=== PATIENT | male | born 2000 | race Caucasian/White ===

== ENCOUNTER → 2018-12-29 | Outpatient (CLI) | payer BC ==
[~2018-12-29] MED LIST: CEPH250S38 PO; [UNRECOGNIZED DRUG - OTHER]
--- NOTE | 2018-12-29 16:43 | Diagnostic Imaging Report ---
INDICATION: Left wrist injury FINDINGS: Three views of the left wrist show a transverse fracture through the waist of the scaphoid. Intercarpal joint spaces are well-maintained. IMPRESSION: Nondisplaced fracture through the waist of the scaphoid. Dictated by: Dictated on workstation # [id number]
== END ==
LOC: RAD 15:50
PROVIDERS: ATTEND Family Medicine
DX: S62.025A Nondisplaced fracture of middle third of navicular [scaphoid] bone of left wrist, initial encounter for closed fracture (principal)
CPT/HCPCS: 73110

== ENCOUNTER → 2019-03-10 | Outpatient (CLI) | payer BC ==
--- NOTE | 2019-03-10 17:17 | Diagnostic Imaging Report ---
PROCEDURE: MRI left upper extremity without contrast. TECHNIQUE: Multiplanar, multisequence non contrast-enhanced MRI of the left upper extremity was accomplished. INDICATION: Wrist fracture several months ago. Patient has continued pain. FINDINGS: The marrow signal intensity of the distal radius and ulna appears normal. Imaging of the carpus does show edema within the scaphoid. Edema is identified in the mid and distal aspect. No residual fracture line is seen. No significant volume loss or fragmentation of the navicular is seen. Carpal alignment appears to be normal. The intrinsic ligaments of the carpal bones appear to be intact. Triangular fibrocartilage appears to be intact. Flexor and extensor tendons are unremarkable. Visualized metacarpals are unremarkable. IMPRESSION: There is edema within the navicular which appears to be primarily in the mid and distal aspect. This may represent residual edema from recent fracture and healing. No definite volume loss or fragmentation of the proximal pole is identified to suggest osteonecrosis. No other significant abnormality is detected. Dictated by: Dictated on workstation # [id number]
== END ==
LOC: RAD 15:21
PROVIDERS: ATTEND Orthopaedic Surgery
DX: S62.002D Unspecified fracture of navicular [scaphoid] bone of left wrist, subsequent encounter for fracture with routine healing (principal)
CPT/HCPCS: 73221

== ENCOUNTER → 2019-06-29 | Outpatient (CLI) | payer OTHER ==
--- NOTE | 2019-06-29 11:10 | Diagnostic Imaging Report ---
PROCEDURE: CT left upper extremity without contrast. TECHNIQUE: Multiple contiguous axial images were obtained through the left upper extremity without the use of intravenous contrast. Auto Exposure Controls were utilized during the CT exam to meet ALARA standards for radiation dose reduction. INDICATION: Left wrist pain. COMPARISON: MRI of the left wrist from 03/10/2019. Wrist radiograph of 12/29/2018. FINDINGS: Bones: The nondisplaced and simple scaphoid waist fracture has undergone partial healing since prior wrist radiograph. However, there is incomplete osseous bridging along the volar aspect of the fracture. Dorsal waist of the fracture has completely healed via interosseous bridging. No additional fracture. No osteonecrosis of the lunate. No ulnar positive variant. Joint spaces are well preserved without degenerative change present. Soft tissues: Flexor and extensor tendons are normal in position. No appreciable soft tissue ganglion. Intrinsic musculature of the hand is normal in bulk. IMPRESSION: 1. Solid osseous bridging of the dorsal aspect of the scaphoid waist fracture. The palmar aspect has incomplete bridging at this time. 2. No additional osseous abnormality in the left wrist. Dictated by: Dictated on workstation # [id number]
== END ==
LOC: RAD 08:43
PROVIDERS: ATTEND Nurse Practitioner
DX: Z04.2 Encounter for examination and observation following work accident (principal); S63.592D Other specified sprain of left wrist, subsequent encounter; W11.XXXD Fall on and from ladder, subsequent encounter; F90.9 Attention-deficit hyperactivity disorder, unspecified type
CPT/HCPCS: 73200

== ENCOUNTER → 2020-04-28 | Outpatient (CLI) | payer BC ==
--- NOTE | 2020-04-28 10:17 | Diagnostic Imaging Report ---
INDICATION: Abdominal pain. COMPARISON: None FINDINGS: 2 supine radiographic views of the abdomen were obtained and demonstrate nondistended loops of small bowel. There is no large collection of free peritoneal air. Mild air and stool are seen scattered throughout the colon. No unexpected extraosseous calcifications or radiopaque foreign bodies are seen. Bony structures show no gross acute abnormalities. IMPRESSION: 1. Nonobstructed small bowel gas pattern. Dictated by: Dictated on workstation # [id number]
== END ==
LOC: RAD 09:03
PROVIDERS: ATTEND Family Medicine
DX: R10.9 Unspecified abdominal pain (principal)
CPT/HCPCS: 74018

== ENCOUNTER 2020-06-03 19:48 | Emergency (ER) | payer BC ==
[~2020-06-03] VITALS: Ht 182 cm; Wt 95.8 kg
--- NOTE | 2020-06-03 20:14 | ED Abdominal Pain ---
General Chief Complaint: Abdominal/GI Problems Stated Complaint: STOMACH SWELLING/PAIN/NAUSEA/DIARRHEA Nursing Triage Note: PT PRESENTS WITH CONCERNS ON NAUSEA AND VOMITING WITH ABD BLOATING AND PAIN THAT HAS BEEN GOING ON FOR APPROX 4 MONTHS Sepsis Screen: No Definite Risk Source of Information: Patient Exam Limitations: No Limitations History of Present Illness Date Seen by Provider: Jun 03, 2020 Time Seen by Provider: 20:13 Initial Comments To ER with periumbilical abdominal cramping loose stools bloating and weight gain for 4 months. Mother has IBS. Timing/Duration: 1-2 Days Severity/Quality: Moderate Location: Generalized Abdomen Radiation: No Radiation Activities at Onset: None Associated Symptoms: Nausea/Vomiting Allergies and Home Medications Allergies Coded Allergies: No Known Drug Allergies (Unverified , 07/02/11) Patient Home Medication List Home Medication List Reviewed: Yes Review of Systems Review of Systems Constitutional: see HPI EENTM: No Symptoms Reported Respiratory: No Symptoms Reported Cardiovascular: No Symptoms Reported Gastrointestinal: See HPI, Abdominal Pain, Diarrhea, Nausea Genitourinary: No Symptoms Reported Musculoskeletal: no symptoms reported Skin: no symptoms reported Psychiatric/Neurological: No Symptoms Reported Endocrine: No Symptoms Reported Hematologic/Lymphatic: No Symptoms Reported Past Jshhdgx-Lxqgyl-Mmplzo Hx Patient Social History Alcohol Use: Occasionally Uses Recreational Drug Use: No Smoking Status: Never a Smoker 2nd Hand Smoke Exposure: No Recent Foreign Travel: No Contact w/Someone Who Travel: No Recent Infectious Disease Expo: No Recent Hopitalizations: No Physical Abuse: No Sexual Abuse: No Mistreated: No Fear: No Immunizations Up To Date Tetanus Booster (TDap): Less than 5yrs Seasonal Allergies Seasonal Allergies: Yes Past Medical History Surgeries: Yes (GYNECOMASTIA) Respiratory: No Cardiac: No Neurological: No Genitourinary: No Gastrointestinal: No Musculoskeletal: No Endocrine: No HEENT: No Cancer: No Psychosocial: No Blood Disorders: No Physical Exam Vital Signs Vital Signs - First Documented 06/03/20 19:57 Temp 36.7 Pulse 75 Resp 18 B/P (MAP) 133/80 (97) Pulse Ox 98 Capillary Refill : Less Than 3 Seconds Height/Weight/BMI Height: '" Weight: lbs. oz. kg; 28.00 BMI Method: General Appearance: WD/WN, no apparent distress Neck: non-tender, full range of motion Respiratory: no respiratory distress, no accessory muscle use Gastrointestinal: normal bowel sounds, soft, tenderness Extremities: normal range of motion, non-tender Neurologic/Psychiatric: alert, normal mood/affect, oriented x 3 Skin: normal color, warm/dry Progress/Results/Core Measures Results/Orders My Orders Orders - HODAN FISCHER APRN Cbc With Automated Diff (06/03/20 20:10) Hs C Reactive Protein (06/03/20 20:10) Comprehensive Metabolic Panel (06/03/20 20:10) Lipase (06/03/20 20:10) Ua Culture If Indicated (06/03/20 20:10) Drug Screen Stat (Urine) (06/03/20 20:10) Ct Abdomen/Pelvis W (06/03/20 20:13) Vital Signs/I&O 06/03/20 19:57 Temp 36.7 Pulse 75 Resp 18 B/P (MAP) 133/80 (97) Pulse Ox 98 Blood Pressure Mean: 97 Departure Impression Primary Impression: IBS (irritable bowel syndrome) Qualified Codes: K58.0 - Irritable bowel syndrome with diarrhea Disposition: HOME, SELF-CARE Condition: Stable Departure-Patient Inst. Decision time for Depature: 20:15 Referrals: VINICIUS GARNICA MD (PCP/Family) Primary Care Physician Patient Instructions: IBS Diet, Irritable Bowel Syndrome Add. Discharge Instructions: 1. Follow-up with Dr. Garnica. Call Saturday to make an appointment to be seen. Return to ER for any worsening. All discharge instructions reviewed with patient and/or family. Voiced understanding. Scripts Dicyclomine HCl (Dicyclomine HCl) 20 Mg Tablet 20 MG PO TID, #30 TAB Prov: HODAN FISCHER APRN 06/03/20 Ondansetron (Ondansetron Odt) 8 Mg Tab.rapdis 8 MG PO Q6H PRN for NAUSEA/VOMITING, #10 TAB Prov: HODAN FISCHER APRN 06/03/20 Copy Copies To 1: VINICIUS GARNICA MD, PETER J APRN Jun 03, 2020 20:14
[2020-06-03] MEDS ORDERED: DICY20TA10 PO (20:17)
[2020-06-03] MEDS ORDERED: ONDA8TAB13 PO (20:17)
[2020-06-03 20:25] LABS: BASOPHILS % (AUTO) 0 % (0-10); EOSINOPHILS # (AUTO) 0.1 10^3/uL (0.0-0.3); EOSINOPHILS % (AUTO) 2 % (0-10); HEMATOCRIT 45 % (40-54); HEMOGLOBIN 15.7 G/DL (13.3-17.7); LYMPHOCYTES # (AUTO) 1.2 X 10^3 (1.0-4.0); LYMPHOCYTES % (AUTO) 22 % (12-44); MEAN CORPUSCULAR HEMOGLOBIN 28 PG (25-34); MEAN CORPUSCULAR HGB CONC 35 G/DL (32-36); MEAN CORPUSCULAR VOLUME 80 FL (80-99); MEAN PLATELET VOLUME 9.4 FL (7.4-10.4); MONOCYTES # (AUTO) 0.3 X 10^3 (0.0-1.0); MONOCYTES % (AUTO) 6 % (0-12); NEUTROPHILS # (AUTO) 3.9 X 10^3 (1.8-7.8); NEUTROPHILS % (AUTO) 71 % (42-75); PLATELET COUNT 259 10^3/uL (130-400); WHITE BLOOD COUNT 5.4 10^3/uL (4.3-11.0)
[2020-06-03 20:33] LABS: BILIRUBIN,URINE NEGATIVE (NEGATIVE); CLARITY,URINE CLEAR; COLOR,URINE YELLOW; GLUCOSE, URINE (UA) NEGATIVE (NEGATIVE); KETONES,URINE NEGATIVE (NEGATIVE); LEUKOCYTE ESTERASE ,URINE NEGATIVE (NEGATIVE); NITRITE,URINE NEGATIVE (NEGATIVE); PROTEIN,URINE NEGATIVE (NEGATIVE)
[2020-06-03 20:35] LABS: ALBUMIN 4.7 GM/DL (3.2-4.5); CHLORIDE 105 MMOL/L (98-107); POTASSIUM 4.1 MMOL/L (3.6-5.0); SODIUM 142 MMOL/L (135-145)
[2020-06-03 20:37] LABS: CALCIUM 9.7 MG/DL (8.5-10.1)
[2020-06-03 20:38] LABS: GLUCOSE 87 MG/DL (70-105); TOTAL PROTEIN 7.5 GM/DL (6.4-8.2)
[2020-06-03 20:39] LABS: BACTERIA,URINE NEGATIVE /HPF
[2020-06-03 20:39] LABS: CARBON DIOXIDE 24 MMOL/L (21-32)
[2020-06-03 20:40] LABS: BILIRUBIN,TOTAL 0.6 MG/DL (0.1-1.0)
[2020-06-03 20:41] LABS: ALKALINE PHOSPHATASE 92 U/L (40-136)
[2020-06-03 20:42] LABS: CREATININE SERUM 0.83 MG/DL (0.60-1.30); GFR ESTIMATED > 60
[2020-06-03 20:43] LABS: BUN/CREATININE RATIO 11
[2020-06-03 20:44] LABS: ALANINE AMINOTRANSFERASE 45 U/L (0-55)
[2020-06-03 20:45] LABS: LIPASE 23 U/L (8-78)
[2020-06-03 20:47] LABS: AMPHETAMINE SCREEN, URINE NEGATIVE (NEGATIVE); BARBITURATE SCREEN URINE NEGATIVE (NEGATIVE); BENZODIAZEPINES SCREEN URINE NEGATIVE (NEGATIVE); CANNABINOID SCREEN, URINE NEGATIVE (NEGATIVE); COCAINE SCREEN URINE NEGATIVE (NEGATIVE); METHADONE STAT NEGATIVE (NEGATIVE); METHAMPHETAMINE SCREEN URINE S NEGATIVE (NEGATIVE); OPIATE SCREEN URINE NEGATIVE (NEGATIVE); OXYCODONE STAT NEGATIVE (NEGATIVE); PROPOXYPHENE STAT NEGATIVE (NEGATIVE); TRICYCLIC ANTIDEPRESSANTS SCRE NEGATIVE (NEGATIVE)
[2020-06-03 21:11] VITALS: BP 122/68
--- OUTSIDE RECORDS SUMMARY | 2020-06-03 22:17 | XMS REPORT | Continuity of Care Document ---
Author Organization Unknown Address Unknown Phone Unavailable Allergies Active Description Code Type Severity Reaction Onset Reported/Identified Relationship to Patient Clinical Status Yes No Known Drug Allergies [id number] Drug Allergy Unknown N/A 07/02/2011 Medications There is no data. Problems Date Dx Coded Attending Type Code Diagnosis Diagnosed By 08/14/2009 Ot V58.30 07/02/2011 Ot 873.0 OPEN WOUND OF SCALP 07/02/2011 Ot E000.8 OT ER EXTERNAL CAUSE STATUS 07/02/2011 Ot E029.9 OT ER ACTIVITY 07/02/2011 Ot E849.0 ACC IDENT IN HOME 07/02/2011 Ot E920.8 ACC -CUTTING INSTRUM NEC 07/09/2011 Ot V58.32 ENC OUNTER FOR REMOVAL OF SUTURES 02/25/2013 V03.89 MEN INGOCOCCAL DX 02/25/2013 V04.89 GAR DASIL (HPV) DX 02/25/2013 V03.89 MEN INGOCOCCAL DX 02/25/2013 V04.89 GAR DASIL (HPV) DX 02/25/2013 JULIUS OLMEDO DO V03.89 MENINGOCOCCAL DX 02/25/2013 JULIUS OLMEDO DO V04.89 GARDASIL (HPV) DX 02/25/2013 DENNIS BOTELLO, ISIDORO Garcia V03.89 MENINGOCOCCAL DX 02/25/2013 DENNIS BOTELLO, ISIDORO Garcia V04.89 GARDASIL (HPV) DX 02/25/2013 GIOVANNI CONTE APRN V03.89 MENINGOCOCCAL DX 02/25/2013 GIOVANNI CONTE APRN V04.89 GARDASIL (HPV) DX 02/25/2013 DENNIS BOTELLO, ISIDORO Garcia V03.89 MENINGOCOCCAL DX 02/25/2013 DENNIS BOTELLO, ISIDORO Garcia V04.89 GARDASIL (HPV) DX 02/25/2013 DENNIS BOTELLO, ISIDORO Garcia V03.89 MENINGOCOCCAL DX 02/25/2013 DENNIS BOTELLO, ISIDORO A V04.89 GARDASIL (HPV) DX 02/25/2013 DENNIS PHD, ISIDORO A V03.89 MENINGOCOCCAL DX 02/25/2013 DENNIS PHD, ISIDORO A V04.89 GARDASIL (HPV) DX 08/10/2013 JULIUS OLMEDO DO 296.90 MOOD DISORDER 08/10/2013 DENNIS PHD, ISIDORO A 296.90 MOOD DISORDER 08/10/2013 GIOVANNI CONTE APRN 296.90 MOOD DISORDER 08/10/2013 DENNIS PHD, ISIDORO A 296.90 MOOD DISORDER 08/10/2013 DENNIS PHD, ISIDORO A 296.90 MOOD DISORDER 08/10/2013 DENNIS PHD, ISIDORO A 296.90 MOOD DISORDER 12/29/2018 DANIKA SHABAZZ, VINICIUS Bailey Ot S62.025A NONDISP FX OF MIDDLE THIRD OF NAVIC BONE 02/04/2019 DANIKA SHABAZZ, VINICIUS Bailey Ot S62.025A NONDISP FX OF MIDDLE THIRD OF NAVIC BONE 03/10/2019 DANIKA SHABAZZ, VINICIUS Bailey Ot S62.025A NONDISP FX OF MIDDLE THIRD OF NAVIC BONE 03/17/2019 VINICIUS GARNICA MD Ot S62.025A NONDISP FX OF MIDDLE THIRD OF NAVIC BONE 03/17/2019 BHASKAR DAJUAN HARRELL Ot S62.002D UNSP FX NAVICULAR BONE OF L WRIST, SUBS 04/07/2019 BHASKAR DODAJUAN Ot S62.002D UNSP FX NAVICULAR BONE OF L WRIST, SUBS 06/24/2019 DANIKA SHABAZZ, VINICIUS Bailey Ot S62.025A NONDISP FX OF MIDDLE THIRD OF NAVIC BONE 06/24/2019 BHASKAR DODAJUAN Ot S62.002D UNSP FX NAVICULAR BONE OF L WRIST, SUBS 07/02/2019 LYSSA FAIRBANKS APRN Ot F90.9 ATTENTION-DEFICIT HYPERACTIVITY DISORDER 07/02/2019 LYSSA FAIRBANKS APRN Ot S63.592D OTHER SPECIFIED SPRAIN OF LEFT WRIST, [place] 07/02/2019 LYSSA FAIRBANKS 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 9 UNSPECIFIED ABDOMINAL PAIN Procedures Code Description [place] [address] PSYC H DIAGNOSTIC EVALUATION 09/16/2013 92963 PSYC H FAMILY TX W/PAT 10/01/2013 96517 PSYC H FAMILY TX W/PAT 10/06/2013 66514 PSYC H FAMILY TX W/PAT 10/22/2013 Results Test Result Range GC/CHLAMYDIA (SWAB OR URINE)-RAPID - 11:01 CHLAMYDIA TRACHOMATIS RNA, TMA NOT DETECTED NOT DETECTED NEISSERIA GONORRHOEAE RNA, TMA NOT DETECTED NOT DETECTED COMMENT NRG CULTURE, VIRAL (HSV W/TYPING) - 08/03/19 12:01 SOURCE: GENITALS NRG HSV CULTURE: NOT ISOLATED NRG HSV 1/2 IGG,TYPE SPECIFIC AB HERPESELECT - 08/04/19 10:22 HSV 1 IGG, TYPE SPECIFIC AB <0.90 index NRG HSV 2 IGG, TYPE SPECIFIC AB <0.90 index NRG HSV 1/2 ANTIBODY IgM - 08/04/19 10:22 HSV 1 IGM SCREEN NEGATIVE NRG HSV 2 IGM SCREEN NEGATIVE NRG Complete blood count (CBC) with automate d white blood cell (WBC) differential - 06/03/20 20:18 Blood leukocytes automated count (number/volume) 5.4 10*3/uL 4.3-11.0 Blood erythrocytes automated count (number/volume) 5.62 10*6/uL 4.35-5.85 Venous blood hemoglobin measurement (mass/volume) 15.7 g/dL 13.3-17.7 Blood hematocrit (volume fraction) 45 % 40-54 Automated erythrocyte mean corpuscular volume 80 [ foz_us] 80-99 Automated erythrocyte mean corpuscular h emoglobin (mass per erythrocyte) 28 pg 25-34 Automated erythrocyte mean corpuscular h emoglobin concentration measurement (mass/volume) 35 g/dL 32-36 Automated erythrocyte distribution width ratio 14. 0 % 10.0- 14.5 Automated blood platelet count (count/volume) 259 10*3/uL 130-400 Automated blood platelet mean volume measurement 9.4 [foz_us] 7.4-10.4 Automated blood neutrophils/100 leukocytes 71 % 42-75 Automated blood lymphocytes/100 leukocytes 22 % 12-44 Blood monocytes/100 leukocytes 6 % 0-12 Automated blood eosinophils/100 leukocytes 2 % 0-10 Automated blood basophils/100 leukocytes 0 % 0-10 Blood neutrophils automated count (number/volume) 3.9 10*3 1.8-7.8 Blood lymphocytes automated count (number/volume) 1.2 10*3 1.0-4.0 Blood monocytes automated count (number/volume) 0. 3 10*3 0.0-1.0 Automated eosinophil count 0.1 10*3/uL 0 .0-0.3 Automated blood basophil count (count/volume) 0.0 10*3/uL 0.0-0.1 Comprehensive metabolic panel - 06/03/20 20:18 Serum or plasma sodium measurement (moles/volume) 142 mmol/L 135-145 Serum or plasma potassium measurement (moles/volume) 4.1 mmol/L 3.6-5.0 Serum or plasma chloride measurement (moles/volume) 105 mmol/L 98-107 Carbon dioxide 24 mmol/L 21-32 Serum or plasma anion gap determination (moles/volume) 13 mmol/L 5-14 Serum or plasma urea nitrogen measurement (mass/volume ) 9 mg/dL 7-18 Serum or plasma creatinine measurement (mass/volume) 0.83 mg/dL 0.60-1.30 Serum or plasma urea nitrogen/creatinine mass ratio 11 NRG Serum or plasma creatinine measurement w ith calculation of estimated glomerular filtration rate > NRG Serum or plasma glucose measurement (mass/volume) 87 mg/dL 70-105 Serum or plasma calcium measurement (mass/volume) 9.7 mg/dL 8.5-10.1 Serum or plasma total bilirubin measurement (mass/volu me) 0.6 mg/dL 0.1-1.0 Serum or plasma alkaline phosphatase tyra surement (enzymatic activity/volume) 92 U/L 40-136 Serum or plasma aspartate aminotransfera se measurement (enzymatic activity/volume) 18 U/L 5-34 Serum or plasma alanine aminotransferase measurement (enzymatic activity/volume) 45 U/L 0-55 Serum or plasma protein measurement (mass/volume) 7.5 g/dL 6.4-8.2 Serum or plasma albumin measurement (mass/volume) 4.7 g/dL 3.2-4.5 Serum or plasma C reactive protein measu rement (mass/volume) - 06/03/20 20:18 Serum or plasma C reactive protein measurement (mass/v olume) 0.46 mg/dL 0.00-0.50 Lipase - 06/03/20 20:18 Lipase 23 U/L 8-78 Serum or plasma C reactive protein measu rement (mass/volume) - 06/03/20 20:18 Serum or plasma C reactive protein measurement (mass/v olume) 0.46 mg/dL 0.00-0.50 Complete urinalysis with reflex to cultu re - 06/03/20 20:25 Urine color determination YELLOW NRG Urine clarity determination CLEAR NR G Urine pH measurement by test strip 7.0 5-9 Specific gravity of urine by test strip 1.010 1.016-1.022 Urine protein assay by test strip, semi-quantitative NEGATIVE NEGATIVE Urine glucose detection by automated test strip NE GATIVE NEGATIVE Erythrocytes detection in urine sediment by light micr oscopy NEGATIVE NEGATIVE Urine ketones detection by automated test strip NE GATIVE NEGATIVE Urine nitrite detection by test strip NEGATIVE NEGATIVE Urine total bilirubin detection by test strip NEGA TIVE NEGATIVE Urine urobilinogen measurement by automated test strip (mass/volume) 1.0 mg/dL < = 1.0 Urine leukocyte esterase detection by dipstick NEG ATIVE NEGATIVE Automated urine sediment erythrocyte cou nt by microscopy (number/high power field) NONE NRG Automated urine sediment leukocyte count by microscopy (number/high power field) NONE NRG Bacteria detection in urine sediment by light microsco py NEGATIVE NRG Crystals detection in urine sediment by light microsco py NONE NRG Casts detection in urine sediment by light microscopy NONE NRG Mucus detection in urine sediment by light microscopy NEGATIVE NRG Complete urinalysis with reflex to culture NO NRG Urine drug screening test - 06/03/20 20: 25 Urine phencyclidine detection by screening method NEGATIVE NEGATIVE Urine benzodiazepines detection by screening method NEGATIVE NEGATIVE Urine cocaine detection NEGATIVE NEGATI VE Urine amphetamines detection by screening method N EGATIVE NEGATIVE Urine methamphetamine detection by screening method NEGATIVE NEGATIVE Urine cannabinoids detection by screening method N EGATIVE NEGATIVE Urine opiates detection by screening method NEGATI VE NEGATIVE Urine barbiturates detection NEGATIVE N EGATIVE Screening urine tricyclic antidepressants detection NEGATIVE NEGATIVE Urine methadone detection by screening method NEGA TIVE NEGATIVE Urine oxycodone detection NEGATIVE NEGA TIVE Urine propoxyphene detection NEGATIVE N EGATIVE Encounters ACCT No. Visit Date/Time Discharge Status Pt. Type Provider Facility Loc./Unit Complaint [id number] 04/01/2020 14:00:00 04/01/2020 23:59:5 9 CLS Outpatient EARLE MCCALL [facility] [id number] 08/04/2019 10:00:00 Document Registration [id number] 08/03/2019 19:00:00 Document Registration [id number] 11/03/2018 09:30:00 Document Registration [id number] 06/03/2020 19:49:00 21:13:00 DIS Emergency HODAN FISCHER APRN [facility] ER STOMACH SWELLING/PAIN/NAUSEA/DIARRHEA [id number] 04/28/2020 09:03:00 23:59:59 CLS Outpatient VINICIUS GARNICA MD [facility] RAD LOWER ABN DISCOMFORT [id number] 06/29/2019 08:43:00 23:59:59 CLS Outpatient LYSSA FAIRBANKS APRN [facility] RAD LEFT WRIST PAIN [id number] 03/10/2019 15:21:00 23:59:59 CLS Outpatient DAJUAN MURO DO [facility] RAD HEALING SCAPHOI D FX PERSISTENT-DORSAL LT WRIST [id number] 12/29/2018 15:50:00 23:59:59 CLS Outpatient VINICIUS GARNICA MD [facility] RAD LEFT WRIST INJURY [id number] 06/21/2013 16:11:00 23:59:59 CLS Outpatient [id number] 07/09/2011 16:22:00 Document Registration [id number] 07/02/2011 18:32:00 Document Registration [id number] 08/14/2009 10:29:00 Document Registration [id number] 10/22/2013 15:57:00 10/22/2013 23:59: 59 CLS Outpatient ISIDORO COLLINS PHD [id number] 10/05/2013 15:53:00 10/05/2013 23:59: 59 CLS Outpatient ISIDORO COLLINS PHD [id number] 09/30/2013 17:55:00 09/30/2013 23:59: 59 CLS Outpatient ISIDORO COLLINS PHD [id number] 09/16/2013 09:38:00 09/16/2013 23:59: 59 CLS Outpatient GIOVANNI CONTE APRN [id number] 09/15/2013 09:09:00 09/15/2013 23:59: 59 CLS Outpatient ISIDORO COLLINS PHD [id number] 08/10/2013 09:27:00 08/10/2013 23:59: 59 CLS Outpatient JULIUS OLMEDO DO [id number] 02/26/2013 15:20:00 02/26/2013 23:59: 59 CLS Outpatient [id number] 03/25/2013 10:09:00 Document Registration
--- OUTSIDE RECORDS SUMMARY | 2020-06-03 22:17 | XMS REPORT ---
Author Author Deshawn COLLINS Organization [facility] Address [address] [place] [address] Care Team Providers Care Senior Contract Specialist Name Role Phone ISIDORO COLLINS Unavailable PROBLEMS Type Condition ICD9-CM Code [id number] Code Onset Dates Condition S tatus SNOMED Code Problem MENINGOCOCCAL DX V03.89 Active 235 60706 Problem Unspecified episodic mood disorder 296.90 Active 813130392 Problem GARDASIL (HPV) DX V04.89 Active 42 2496836 ALLERGIES No Information ENCOUNTERS Encounter Location Date Diagnosis [facility] IN [facility] [address] [id number] [address] 15 Mar, 2020 Drug screening, pre-employme nt Z02.1 [facility] [address] [facility] [id number] [address] [place] [phone] 17 Jul, 2019 Screen for STD (sexually tra nsmitted disease) Z11.3 [facility] IN [facility] [address] [facility] [id number] [address] [place] [phone] 16 Jul, 2019 Screen for STD (sexually tra nsmitted disease) Z11.3 [facility] IN [facility] [address] [facility] [id number] [address] [place] [id number] 17 Oct, 2018 STD (male) A64 and Folliculi tis L73.9 [facility] [address] [facility] [id number] [address] [place] [phone] Oct, [facility] [address] [facility] [id number] [address] [place] [phone] Oct, [facility] [address] [facility] [id number] [address] [place] [phone] Sep, [facility] [address] [facility] [id number] [address] [place] [phone] Sep, [facility] [address] [facility] [id number] [address] [place] [phone] Sep, [facility] [address] [facility] [id number] [address] [place] [phone] Sep, [facility] [address] [facility] [id number] [address] [place] [phone] Aug, [facility] [address] [facility] [id number] [address] [place] [phone] Aug, [facility] [address] [facility] [id number] [address] [place] [phone] Aug, [facility] [address] [facility] [id number] [address] [place] [phone] Aug, [id number] [place] [id number] Jul, [facility] [address] [facility] [id number] [address] [place] [phone] March, [facility] [address] [facility] [id number] [address] [place] [phone] Feb, IMMUNIZATIONS No Known Immunizations SOCIAL HISTORY Never Assessed REASON FOR VISIT PLAN OF CARE VITAL SIGNS MEDICATIONS Unknown Medications RESULTS No Results PROCEDURES No Known procedures INSTRUCTIONS MEDICATIONS ADMINISTERED No Known Medications MEDICAL (GENERAL) HISTORY Type Description Date Surgical History No Surgical history information
--- OUTSIDE RECORDS SUMMARY | 2020-06-03 22:17 | XMS REPORT ---
Author Author Deshawn COLLINS Organization [facility] Address [address] [place] [address] Care Team Providers Care Data Entry Associate Name Role Phone ISIDORO COLLINS Unavailable PROBLEMS Type Condition ICD9-CM Code QAV38-HE Code Onset Dates Condition S tatus SNOMED Code Problem MENINGOCOCCAL DX V03.89 Active 235 70934 Problem Unspecified episodic mood disorder 296.90 Active 056377574 Problem GARDASIL (HPV) DX V04.89 Active 42 [id number] ALLERGIES No Information ENCOUNTERS Encounter Location Date Diagnosis [facility] IN [facility] [address] [id number], [place] [address] 15 Mar, 2020 Drug screening, pre-employme nt Z02.1 [facility] [address] [facility] [id number] [address] [place] [phone] 17 Jul, 2019 Screen for STD (sexually tra nsmitted disease) Z11.3 [facility] IN [facility] [address] [facility] [id number] [address] [place] [phone] 16 Jul, 2019 Screen for STD (sexually tra nsmitted disease) Z11.3 [facility] IN [facility] [address] [facility] [id number] [address] [place] [phone] 17 Oct, 2018 STD (male) A64 and Folliculi tis L73.9 [facility] [address] [facility] [id number] [address] [place] [phone] Oct, [facility] [address] [facility] [id number] [address] [place] [phone] Oct, [facility] [address] [facility] [id number] [address] [place] [phone] Sep, [facility] [address] [facility] [id number] [address] [place] [phone] Sep, [facility] [address] [facility] [id number] [address] [place] [phone] Sep, [facility] [address] [facility] [id number] [address] [place] [phone] Sep, [facility] [address] [facility] [id number] [address] [place] [phone] Aug, [facility] [address] [facility] [id number] [address] [place] [phone] Aug, [facility] [address] [facility] [id number] [address] [place] [phone] Aug, [facility] [address] [facility] [id number] [address] [place] [address] Aug, [id number] [place] [phone] Jul, [facility] [address] [facility] [id number] [address] [place] [address] March, [facility] [address] [facility] [id number] [address] [place] [phone] Feb, IMMUNIZATIONS No Known Immunizations SOCIAL HISTORY Never Assessed REASON FOR VISIT PLAN OF CARE VITAL SIGNS MEDICATIONS Unknown Medications RESULTS No Results PROCEDURES No Known procedures INSTRUCTIONS MEDICATIONS ADMINISTERED No Known Medications MEDICAL (GENERAL) HISTORY Type Description Date Surgical History No Surgical history information
--- OUTSIDE RECORDS SUMMARY | 2020-06-03 22:17 | XMS REPORT ---
Author Author Deshawn COLLINS Organization [facility] Address [address] [place] [address] Care Team Providers Care Photogrammetry Airplane Pilot Name Role Phone ISIDORO COLLINS Unavailable PROBLEMS Type Condition ICD9-CM Code PFR30-NQ Code Onset Dates Condition S tatus SNOMED Code Problem MENINGOCOCCAL DX V03.89 Active 235 96327 Problem Unspecified episodic mood disorder 296.90 Active 995753400 Problem GARDASIL (HPV) DX V04.89 Active 42 [id number] ALLERGIES No Information ENCOUNTERS Encounter Location Date Diagnosis [facility] [address] [id number] [address] 15 Mar, 2020 Drug screening, pre-employme nt Z02.1 [facility] [address] [facility] [id number] [address] [place] [phone] 17 Jul, 2019 Screen for STD (sexually tra nsmitted disease) Z11.3 [facility] [address] [facility] [id number] [address] [place] [phone] 16 Jul, 2019 Screen for STD (sexually tra nsmitted disease) Z11.3 [facility] [address] [facility] [id number] [address] [place] [phone] 17 Oct, 2018 STD (male) A64 and Folliculi tis L73.9 [facility] [address] [facility] [id number] [address] [place] [phone] Oct, [facility] [address] [facility] [id number] [address] [place] [phone] Oct, [facility] [address] [facility] [id number] [address] [place] [phone] Sep, [facility] [address] [facility] [id number] [address] [place] [phone] Sep, [facility] [address] [facility] [id number] [address] [place] [phone] Sep, [facility] [address] [facility] [id number] [address] [place] [phone] Sep, [facility] [address] [facility] [id number] [address] [place] [phone] Aug, [facility] [address] [facility] [id number] [address] [place] [phone] Aug, [facility] [address] [facility] [id number] [address] [place] [phone] Aug, [facility] [address] [facility] [id number] [address] [place] [phone] Aug, [id number] [place] [phone] Jul, [facility] [address] [facility] [id number] [address] [place] [phone] March, [facility] [address] [facility] [id number] [address] [place] [phone] Feb, IMMUNIZATIONS No Known Immunizations SOCIAL HISTORY Never Assessed REASON FOR VISIT PLAN OF CARE VITAL SIGNS MEDICATIONS Unknown Medications RESULTS No Results PROCEDURES No Known procedures INSTRUCTIONS MEDICATIONS ADMINISTERED No Known Medications MEDICAL (GENERAL) HISTORY Type Description Date Surgical History No Surgical history information
--- OUTSIDE RECORDS SUMMARY | 2020-06-03 22:17 | XMS REPORT ---
Author Author Deshawn GUERRA [address] Address [address] [place] [address] Care Team Providers Care Police Booking Officer Name Role Phone FRANCISCA GUERRA Unavailable PROBLEMS Type Condition ICD9-CM Code [id number] Code Onset Dates Condition S tatus SNOMED Code Problem MENINGOCOCCAL DX V03.89 Active 235 91435 Problem Unspecified episodic mood disorder 296.90 Active 706125712 Problem GARDASIL (HPV) DX V04.89 Active 42 [id number] ALLERGIES No Information ENCOUNTERS Encounter Location Date Diagnosis [facility] IN [facility] [address] [id number], [place] [address] 15 Mar, 2020 Drug screening, pre-employme nt Z02.1 [facility] [address] [facility] [id number] [address] [place] [phone] 17 Jul, 2019 Screen for STD (sexually tra nsmitted disease) Z11.3 [facility] IN [facility] [address] [facility] [id number] [address] [place] [phone] 16 Jul, 2019 Screen for STD (sexually tra nsmitted disease) Z11.3 [facility] IN [facility] [address] [facility] [id number] [address] [place] [phone] 17 Oct, 2018 STD (male) A64 and Folliculi tis L73.9 [facility] [address] [facility] [id number] [address] [place] [phone] Oct, [facility] [address] [facility] [id number] [address] [place] [phone] Oct, [facility] [address] [facility] [id number] [address] [place] [phone] Sep, [facility] [address] [place] [id number] [address] [place] [phone] Sep, [facility] [address] [id number] [address] [place] [phone] Sep, [facility] [address] [id number] [address] [place] [phone] Sep, [facility] [address] [facility] [id number] [address] [place] [phone] Aug, [facility] [address] [id number] [address] [place] [phone] Aug, [facility] [address] [facility] [id number] [address] [place] [phone] Aug, [facility] [address] [facility] [id number] [address] [place] [phone] Aug, [facility] [id number] [place] [address] [phone] Jul, [facility] [address] [facility] [id number] [address] [place] [phone] March, [facility] [address] [facility] [id number] [address] [place] [phone] Feb, IMMUNIZATIONS No Known Immunizations SOCIAL HISTORY Never Assessed REASON FOR VISIT PLAN OF CARE VITAL SIGNS Height 67 in 2013-08-10 Weight 156.2 lbs 2013-08-10 Temperature 98.4 degrees Fahrenheit 2013-08-10 Heart Rate 80 bpm 2013-08-10 Respiratory Rate 16 2013-08-10 Blood pressure systolic 120 mmHg 2013-08-10 Blood pressure diastolic 74 mmHg 2013-08-10 MEDICATIONS Unknown Medications RESULTS No Results PROCEDURES No Known procedures INSTRUCTIONS MEDICATIONS ADMINISTERED No Known Medications MEDICAL (GENERAL) HISTORY Type Description Date Surgical History No Surgical history information
--- OUTSIDE RECORDS SUMMARY | 2020-06-03 22:17 | XMS REPORT ---
Author Author Deshawn Alfaro Organization [facility] Address [address] [place] [address] Care Team Providers Care Senior Administrative Associate Name Role Phone GIOVANNI Alfaro Unavailable PROBLEMS Type Condition ICD9-CM Code TZA11-XG Code Onset Dates Condition S tatus SNOMED Code Problem MENINGOCOCCAL DX V03.89 Active 235 94792 Problem Unspecified episodic mood disorder 296.90 Active 735641644 Problem GARDASIL (HPV) DX V04.89 Active 42 [id number] ALLERGIES No Information ENCOUNTERS Encounter Location Date Diagnosis [facility] IN [facility] [address] [id number], [place] [address] 15 Mar, 2020 Drug screening, pre-employme nt Z02.1 [facility] [address] [facility] [id number] [address] [place] [phone] 17 Jul, 2019 Screen for STD (sexually tra nsmitted disease) Z11.3 [facility] [address] [facility] [id number] [address] [place] [phone] 16 Jul, 2019 Screen for STD (sexually tra nsmitted disease) Z11.3 [facility] [address] [facility] [id number] [address] [place] [phone] 17 Oct, 2018 STD (male) A64 and Folliculi tis L73.9 [facility] [address] [facility] [id number] [address] [place] [phone] Oct, [facility] [address] [facility] [id number] [address] [place] [phone] Oct, [facility] [address] [facility] [id number] [address] [place] [phone] Sep, [facility] [address] [facility] [id number] [address] [place] [phone] Sep, [facility] [address] [id number] [address] [place] [phone] Sep, [facility] [address] [facility] [id number] [address] [place] [phone] Sep, [facility] [address] [facility] [id number] [address] [place] [phone] Aug, [facility] [address] [facility] [id number] [address] [place] [phone] Aug, [facility] [address] [facility] [id number] [address] [place] [phone] Aug, [facility] [address] [facility] [id number] [address] [place] [phone] Aug, [place] [address] [facility] [id number] [place] [address] [phone] Jul, [facility] [address] [facility] [id number] [address] [place] [phone] March, [facility] [address] [facility] [id number] [address] [place] [phone] Feb, IMMUNIZATIONS No Known Immunizations SOCIAL HISTORY Never Assessed REASON FOR VISIT PLAN OF CARE VITAL SIGNS MEDICATIONS Unknown Medications RESULTS No Results PROCEDURES No Known procedures INSTRUCTIONS MEDICATIONS ADMINISTERED No Known Medications MEDICAL (GENERAL) HISTORY Type Description Date Surgical History No Surgical history information
--- OUTSIDE RECORDS SUMMARY | 2020-06-03 22:17 | XMS REPORT ---
Author Author Deshawn COLLINS Organization [facility] Address [address] [place] [address] Care Team Providers Care Fish Bin Tender Name Role Phone ISIDORO COLLINS Unavailable PROBLEMS Type Condition ICD9-CM Code MIL98-WH Code Onset Dates Condition S tatus SNOMED Code Problem MENINGOCOCCAL DX V03.89 Active 235 46887 Problem Unspecified episodic mood disorder 296.90 Active 925105389 Problem GARDASIL (HPV) DX V04.89 Active 42 [id number] ALLERGIES No Information ENCOUNTERS Encounter Location Date Diagnosis [facility] [address] [id number], [place] [address] 15 Mar, 2020 Drug screening, pre-employme nt Z02.1 [facility] [address] [facility] [id number] [address] [place] [phone] 17 Jul, 2019 Screen for STD (sexually tra nsmitted disease) Z11.3 [facility] IN [facility] [address] [facility] [id number] [address] [place] [phone] 16 Jul, 2019 Screen for STD (sexually tra nsmitted disease) Z11.3 [facility] IN [facility] [address] [facility] [id number] [address] [place] [phone] 17 Oct, 2018 STD (male) A64 and Folliculi tis L73.9 [facility] [address] [facility] [id number] [address] [place] [phone] Oct, [facility] [address] [facility] [id number] [address] [place] [phone] Oct, [facility] [address] [facility] [id number] [address] [place] [phone] Sep, [facility] [address] [facility] [id number] [address] [place] [phone] Sep, [facility] [address] [facility] [id number] [address] [place] [phone] Sep, [facility] [address] [facility] [id number] [address] [place] [phone] Sep, [facility] [address] [facility] [id number] [address] [place] [phone] Aug, [facility] [address] [facility] [id number] [address] [place] [phone] Aug, [facility] [address] [facility] [id number] [address] [place] [phone] Aug, [facility] [address] [facility] [id number] [address] [place] [phone] Aug, [id number] [place] [phone] Jul, [facility] [address] [facility] [id number] [address] [place] [phone] March, [facility] [address] [facility] [id number] [address] [place] [phone] Feb, IMMUNIZATIONS No Known Immunizations SOCIAL HISTORY Never Assessed REASON FOR VISIT PLAN OF CARE VITAL SIGNS MEDICATIONS Unknown Medications RESULTS No Results PROCEDURES Procedure Date Ordered Result Body Site PSYCH DIAGNOSTIC EVALUATION Sep 15, 2013 INSTRUCTIONS MEDICATIONS ADMINISTERED No Known Medications MEDICAL (GENERAL) HISTORY Type Description Date Surgical History No Surgical history information
--- OUTSIDE RECORDS SUMMARY | 2020-06-03 22:17 | XMS REPORT ---
Author Author Deshawn REID [facility] Address [address] [place] [address] Care Team Providers Care Detective Precinct Name Role Phone GABY REID Unavailable PROBLEMS Type Condition ICD9-CM Code AFP77-ZW Code Onset Dates Condition S tatus SNOMED Code Problem Unspecified episodic mood disorder 296.90 Active 508064238 Problem MENINGOCOCCAL DX V03.89 Active 235 08791 Problem GARDASIL (HPV) DX V04.89 Active 42 [id number] ALLERGIES No Known Allergies ENCOUNTERS Encounter Location Date Diagnosis [facility] IN [facility] [address] [facility] [id number] [address] [place] [phone] Oct, STD (male) A64 and Folliculi tis L73.9 [facility] [address] [facility] [id number] [address] [place] [phone] Oct, [facility] [address] [facility] [id number] [address] [place] [phone] Oct, [facility] [address] [facility] [id number] [address] [place] [phone] Sep, [facility] [address] [facility] [id number] [address] [place] [phone] Sep, [facility] [address] [facility] [id number] [address] [place] [phone] Sep, [facility] [address] [facility] [id number] [address] [place] [phone] Sep, [facility] [address] [facility] [id number] [address] [place] [phone] Aug, [facility] [address] [facility] [id number] [address] [place] [phone] Aug, [facility] [address] [facility] [id number] [address] [address] Aug, [facility] [address] [facility] [id number] [address] [address] Aug, [facility] [address] [id number] EUGENIOTrevin S [id number] Jul, [facility] [address] [facility] [id number] [address] [address] March, [facility] [address] [facility] [id number] [address] [address] Feb, IMMUNIZATIONS No Known Immunizations SOCIAL HISTORY Never Assessed REASON FOR VISIT STD Check- no symptoms JStrasserRN PLAN OF CARE Activity Details Follow Up We will notify him of test r esults and treatment recommendations when they are available. Reason: VITAL SIGNS Height 67 in 2018-11-03 Weight 180.4 lbs 2018-11-03 Temperature 98.5 degrees Fahrenheit 2018-11-03 Heart Rate 64 bpm 2018-11-03 Respiratory Rate 20 2018-11-03 BMI 28.25 kg/m2 2018-11-03 Blood pressure systolic 112 mmHg 2018-11-03 Blood pressure diastolic 70 mmHg 2018-11-03 MEDICATIONS Medication Instructions Dosage Frequency Start Date End Date Duration S tatus Mupirocin 2 % Externally Three times a day 1 application to affecte d area 8h Oct, 5 day(s) Active Cephalexin 500 MG Orally every 8 hrs 1 capsule 8h Oct, 10 day(s) Active RESULTS No Results PROCEDURES Procedure Date Ordered Result Body Site CHYLMD TRACH, DNA, AMP PROBE Nov 03, 2018 N.GONORRHOEAE, DNA, AMP PROB Nov 03, 2018 INSTRUCTIONS MEDICATIONS ADMINISTERED No Known Medications MEDICAL (GENERAL) HISTORY Type Description Date Surgical History No know Surgical history
== END 2020-06-03 21:13 | disposition home or self-care (01) ==
LOC: EDUNIT# 19:48 → ER 19:49
DX: K58.0 Irritable bowel syndrome with diarrhea (principal)
CPT/HCPCS: 36415; 80053; 80306; 81000; 83690; 85025; 86141

== ENCOUNTER 2021-02-03 08:52 | Emergency (ER) | payer BC, OTHER ==
[~2021-02-03] VITALS: Ht 185 cm; Wt 86.2 kg
[~2021-02-03 08:52] MED LIST changes: +DICY20TA10 PO; +ONDA8TAB13 PO
[2021-02-03] MEDS ORDERED: LIDOCAINE 1% INJ 20 ML 20 ML VIAL ONE (08:55)
[2021-02-03 08:56] VITALS: BP 117/91
--- NOTE | 2021-02-03 08:59 | ED Upper Extremity ---
General Chief Complaint: Upper Extremity Stated Complaint: WC RT FINGER INJ History of Present Illness Date Seen by Provider: Feb 03, 2021 Time Seen by Provider: 08:57 Initial Comments 20-year-old male presents with dislocation of the PIP joint of the right index finger. Patient reports that he was wrestling around with somebody when his finger got caught on the floor and dislocated. Finger has obvious dislocation. He does have brisk cap refill and sensation to the distal finger. He has no other injuries. Allergies and Home Medications Allergies Coded Allergies: No Known Drug Allergies (Unverified , 07/02/11) Home Medications Dicyclomine HCl 20 Mg Tablet, 20 MG PO TID Prescribed by: HODAN FISCHER on 06/03/202016 Ondansetron 8 Mg Tab.rapdis, 8 MG PO Q6H PRN for NAUSEA/VOMITING Prescribed by: HODAN FISCHER on 06/03/202016 Patient Home Medication List Home Medication List Reviewed: Yes Review of Systems Constitutional: no symptoms reported EENTM: no symptoms reported Respiratory: no symptoms reported Cardiovascular: no symptoms reported Gastrointestinal: no symptoms reported Genitourinary: no symptoms reported Musculoskeletal: see HPI Skin: no symptoms reported Psychiatric/Neurological: No Symptoms Reported Past [id number]-Rmkomm Hx Past Med/Social Hx: Reviewed Nursing Past Med/Soc Hx Patient Social History 2nd Hand Smoke Exposure: No Recent Hopitalizations: No Immunizations Up To Date Tetanus Booster (TDap): Less than 5yrs Seasonal Allergies Seasonal Allergies: Yes Past Medical History Surgeries: Yes (GYNECOMASTIA) Respiratory: No Cardiac: No Neurological: No Genitourinary: No Gastrointestinal: No Musculoskeletal: No Endocrine: No HEENT: No Cancer: No Psychosocial: No Blood Disorders: No Physical Exam Vital Signs Vital Signs - First Documented 02/03/21 08:56 Temp 37.0 Pulse 93 Resp 16 B/P (MAP) 117/91 (100) Pulse Ox 95 O2 Delivery Room Air Capillary Refill : Height, Weight, BMI Height: '" Weight: lbs. oz. kg; 28.00 BMI Method: General Appearance: mild distress Neck: full range of motion, supple Cardiovascular: normal peripheral pulses, regular rate, rhythm Respiratory: chest non-tender Gastrointestinal: non tender, soft Back: normal inspection Shoulder: normal inspection Elbow/Forearm: normal inspection Wrist: Yes normal inspection Hand: limited ROM (Obvious dislocation PIP joint right index finger) Procedures/Interventions Splinting and Joint Reduction : Location: Right index finger Pre-Proc Neuro Vasc Exam: normal Post-Proc Neuro Vasc Exam: normal Progress Patient right index finger dislocation at the PIP joint was easily reduced with 1 attempt. Reduction Attempts: 1 Pre-Procedure NV Exam: Yes post joint reduction film: joint reduced Progress/Results/Core Measures Results/Orders My Orders Orders - PAUL BAH DO Lidocaine 1% Inj 20 Ml (Xylocaine 1% Inj (02/03/21 09:00) Finger(S) (02/03/21 08:59) Lidocaine 1% Inj 20 Ml (Xylocaine 1% Inj (02/03/21 08:55) Vital Signs/I&O 02/03/21 08:56 Temp 37.0 Pulse 93 Resp 16 B/P (MAP) 117/91 (100) Pulse Ox 95 O2 Delivery Room Air Departure Impression Primary Impression: Dislocation of proximal interphalangeal joint of right index finger, initial encounter Disposition: 01 HOME, SELF-CARE Condition: Improved Departure-Patient Inst. Referrals: VINICIUS GARNICA MD (PCP/Family) Primary Care Physician Patient Instructions: Finger Dislocation ED Add. Discharge Instructions: Ice to affected area Tylenol or ibuprofen as needed All discharge instructions reviewed with patient and/or family. Voiced understanding. PAUL BAH DO Feb 03, 2021 08:59
[2021-02-03] MEDS ORDERED: LIDOCAINE 1% INJ 20 ML 20 ML VIAL INJ ONE (09:00)
--- NOTE | 2021-02-03 09:36 | Diagnostic Imaging Report ---
Indication: Right index finger injury 4 views of the right index finger show no fracture, dislocation or other acute abnormalities. IMPRESSION: Negative right index finger. Dictated by: Dictated on workstation # [id number]
== END 2021-02-03 09:25 | disposition home or self-care (01) ==
LOC: EDUNIT# 08:52 → ER FS 08:54
DX: S63.280A Dislocation of proximal interphalangeal joint of right index finger, initial encounter (principal); W23.1XXA Caught, crushed, jammed, or pinched between stationary objects, initial encounter; Y93.72 Activity, wrestling
CPT/HCPCS: 26770; 73140